=== PATIENT | female | born 1945 | race Two or more races ===

== ENCOUNTER 2017-03-12 18:03 | Inpatient (IN) | payer MEDICARE, OTHER ==
[~2017-03-12] VITALS: Ht 154.9 cm; Wt 64.0 kg
[2017-03-12] MEDS ORDERED: ALD50 PO (18:07)
[2017-03-12] MEDS ORDERED: FURO-152 PO (18:07)
[2017-03-12 18:48] LABS: HEMATOCRIT. 34.5 % (36.0-48.0); HEMOGLOBIN. 11.9 g/dL (12.0-16.0); MEAN CORPUSCULAR HEMOGLOBIN 29.7 pg (28.0-32.0); MEAN CORPUSCULAR VOLUME 86.4 fL (81.0-99.0); PLATELET 316 x1000/uL (130-400); RED BLOOD CELL COUNT 3.99 mill/uL (4.2-5.4); RED CELL DISTRIBUTION WIDTH 14.4 % (11.6-14.6)
[2017-03-12 18:50] LABS: CHLORIDE 87 mEq/L (98-107)
[2017-03-12 18:51] LABS: INR 1.1; PROTHROMBIN TIME 11.2 sec (9.4-11.6)
[2017-03-12 18:59] LABS: CARBON DIOXIDE 22 mEq/L (21-32); ETHANOL BLOOD < 10 mg/dL
[2017-03-12 19:06] LABS: PLATELET ESTIMATE NORMAL
[2017-03-12] MEDS ORDERED: SODIUM CHLORIDE 3% 500ML IV SOLN IV ONE (19:30)
[2017-03-12] MEDS ORDERED: SODIUM CHLORIDE 0.9% 1,000 ML IV ONE (19:45)
[2017-03-12 19:54] LABS: CLARITY URINE CLOUDY (CLEAR); COLOR URINE YELLOW (YELLOW); GLUCOSE URINE NEGATIVE (NEGATIVE); KETONES URINE 2+ (NEGATIVE); LEUKOCYTE ESTERASE URINE NEGATIVE (NEGATIVE); NITRITE URINE POSITIVE (NEGATIVE); OCCULT BLOOD URINE 2+ (NEGATIVE); PROTEIN URINE 4+ (NEGATIVE); SPECIFIC GRAVITY URINE 1.019 (1.005-1.030)
[2017-03-12] MEDS ORDERED: CEFTRIAXONE 1 G PREMIX 50 ML IV ONE (20:00)
[2017-03-12 20:07] LABS: *AMPHETAMINES SCREEN URINE NEGATIVE (NEGATIVE); *BARBITURATES SCREEN URINE NEGATIVE (NEGATIVE); *BENZODIAZEPINES SCREEN URINE NEGATIVE (NEGATIVE); *COCAINE SCREEN URINE NEGATIVE (NEGATIVE); CANNABINOID URINE SCREEN NEGATIVE (NEGATIVE); METHADONE URINE SCREEN NEGATIVE (NEGATIVE); OPIATES URINE SCREEN NEGATIVE (NEGATIVE); PHENCYCLIDINE URINE SCREEN NEGATIVE (NEGATIVE)
[2017-03-12] MEDS ORDERED: SODIUM CHLORIDE 3% 500 ML IV ONE (20:15)
[2017-03-12 23:20] VITALS: BP 157/82
[2017-03-12] MEDS ORDERED: ACETAMINOPHEN 325MG TABLET PO PRN (23:30)
[2017-03-12] MEDS ORDERED: MAGNESIUM/ALUMINUM HYDROXIDE/SIMETHICONE 30ML UDC PO PRN (23:30)
[2017-03-12] MEDS ORDERED: ONDANSETRON HCL 4MG/2ML VIAL IV PRN (23:30)
[2017-03-12] MEDS ORDERED: MAGNESIUM 2 G PREMIX 50 ML IV PRN (23:30)
[2017-03-12] MEDS ORDERED: DIPHENHYDRAMINE 50MG/ML VIAL IV PRN (23:30)
[2017-03-13 00:16] VITALS: BP 157/82
[2017-03-13] MEDS: SODIUM CHLORIDE 0.9% 1,000 ML IV SCH ×2 (00:29→08:07)
[2017-03-13] MEDS ORDERED: POTASSIUM CHLORIDE 20MEQ TABLET SR PO NR (00:30)
[2017-03-13] MEDS ORDERED: HYDR-523 PO (02:12)
[2017-03-13] MEDS ORDERED: FLUO-124 PO (02:12)
[2017-03-13] MEDS ORDERED: SIMV20TA6 PO (02:12)
[2017-03-13] MEDS ORDERED: ATEN-42 PO (02:12)
[2017-03-13] MEDS ORDERED: POTA10CA42 PO (02:12)
[2017-03-13] MEDS ORDERED: ZOLP10TA2 PO (02:12)
[2017-03-13] MEDS ORDERED: MIRT15TA6 PO (02:12)
[2017-03-13] MEDS ORDERED: [UNRECOGNIZED DRUG - CODE] PO (02:12)
[2017-03-13 04:00] VITALS: BP 153/84
[2017-03-13 08:00] VITALS: BP 159/95
[2017-03-13] MEDS: POTASSIUM CHLORIDE 20MEQ TABLET SR PO SCH (08:07)
[2017-03-13] MEDS: SODIUM CHLORIDE 1000MG TABLET PO SCH ×2 (08:07→17:55)
[2017-03-13] MEDS: CLONIDINE 0.1MG TABLET PO PRN ×2 (08:23→20:06)
[2017-03-13 12:00] VITALS: BP 123/74
[2017-03-13 16:00] VITALS: BP 135/86
[2017-03-13 17:47] LABS: CARBON DIOXIDE 27 mEq/L (21-32); CHLORIDE 95 mEq/L (98-107)
[2017-03-13 20:00] VITALS: BP 163/84
[2017-03-14] VITALS: BP 155/86
[2017-03-14] MEDS: SODIUM CHLORIDE 0.9% 1,000 ML IV SCH (01:20)
[2017-03-14 04:00] VITALS: BP 167/93
[2017-03-14] MEDS: CLONIDINE 0.1MG TABLET PO PRN (04:12)
[2017-03-14 07:31] LABS: CARBON DIOXIDE 24 mEq/L (21-32); CHLORIDE 100 mEq/L (98-107)
[2017-03-14 08:00] VITALS: BP 140/83
[2017-03-14] MEDS: POTASSIUM CHLORIDE 20MEQ TABLET SR PO SCH (08:44)
[2017-03-14] MEDS: SODIUM CHLORIDE 1000MG TABLET PO SCH (08:44)
[2017-03-14 14:58] VITALS: BP 149/82
== END 2017-03-14 15:30 | disposition home or self-care (01) | DRG 101 ==
LOC: ER 18:14 → 5WST 19:59 → ENRESERV 21:34 → CANRESERV 22:23
PROVIDERS: ADMIT Internal Medicine; ATTEND Internal Medicine
DX: R56.9 Unspecified convulsions (principal); E83.42 Hypomagnesemia; E87.1 Hypo-osmolality and hyponatremia; E86.9 Volume depletion, unspecified; M54.9 Dorsalgia, unspecified; G89.29 Other chronic pain; E87.6 Hypokalemia; I10 Essential (primary) hypertension; E78.00 Pure hypercholesterolemia, unspecified; Z83.3 Family history of diabetes mellitus; Z87.891 Personal history of nicotine dependence; Z90.49 Acquired absence of other specified parts of digestive tract; Z90.710 Acquired absence of both cervix and uterus; Z88.2 Allergy status to sulfonamides; Z88.8 Allergy status to other drugs, medicaments and biological substances; Z79.899 Other long term (current) drug therapy
CPT/HCPCS: 36415; 70450; 71010; 80048; 80053; 80305; 81001; 83735; 85025; 85610; 93005; 93970; 97162; 99285; G0482; J0696; J3475; J3490; J7030